=== PATIENT | male | born 1945 | race Caucasian/White ===

== ENCOUNTER → 2019-09-01 | Outpatient (CLI) | payer MEDICARE, OTHER ==
--- NOTE | 2019-09-01 09:40 | RAD ---
Examination: SHOULDER 2+V RIGHT History: Pain Comparison/Correlation: None Findings: Total 3 images of the right shoulder were obtained. Right acromioclavicular joint degenerative narrowing and hypertrophy is present. Right glenohumeral joint is unremarkable. No displaced fracture or bone destruction. Soft tissues are grossly unremarkable. Impression: No acute process. Acromioclavicular degenerative hypertrophy. Electronically signed by: Mingo Hunt MD (09/01/2019 9:37 AM) [id number]
== END | disposition home or self-care (01) ==
LOC: DXRAD 08:46
PROVIDERS: ATTEND Family Medicine
DX: M89.311 Hypertrophy of bone, right shoulder (principal); M25.811 Other specified joint disorders, right shoulder
CPT/HCPCS: 73030

== ENCOUNTER → 2019-09-30 | Outpatient (CLI) | payer MEDICARE, OTHER ==
--- NOTE | 2019-09-30 10:57 | RAD ---
Study: CR HIP LEFT 1 VIEW WITH PELVIS Indication: Hip and pelvic pain. Comparison: 04/01/2019 Findings: Left hip arthroplasty construct is again demonstrated. The hardware is intact. No periprosthetic fracture. On the oblique view of the proximal left femur, mild lucency between the cement and bone distal to the stem tip but this is less well appreciated on the AP view and not definitive of loosening. Unchanged appearance of the right hip with maintained joint space with. Unremarkable pubic symphysis. 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 No acute fractures identified. Impression: 1. No periprosthetic fracture or findings of loosening involving the left hip arthroplasty construct. 2. No advanced arthrosis at the right hip. 3. Incompletely assessed severe discogenic arthrosis at the lower lumbar spine. Electronically signed by: EMMANUEL ENRIQUEZ MD (09/30/2019 10:54 AM) [id number]
== END | disposition home or self-care (01) ==
LOC: RAD 10:10
PROVIDERS: ATTEND Physician Assistant
DX: M25.552 Pain in left hip (principal); R10.2 Pelvic and perineal pain; Z98.890 Other specified postprocedural states; Z96.642 Presence of left artificial hip joint
CPT/HCPCS: 73501